=== PATIENT | female | born 1985 | race Caucasian/White ===

== ENCOUNTER 2020-01-21 10:55 | Day surgery (SDC) | payer OTHER ==
[2020-01-12 15:28] VITALS: BMI 20.9
[2020-01-21] MEDS ORDERED: PROPOFOL 20 ML ONE ×2 (11:19)
[2020-01-21 12:30] VITALS: TEMP 97.9
[2020-01-21 13:03] VITALS: BP 105/68; PULSE 84
--- NOTE | 2020-01-23 16:38 | PATH ---
Surgical Pathology Report Patient Name: FRANKLIN WRIGHT [facility]. Rec. #: [id number] /Age/Gender: 1985 (Age: 34) / F Account: [id number] Location: [facility] Taken: 01/21/2020 Received: 01/21/2020 Reported: 01/23/2020 Physicians: Faith Ren M.D. Specimen(s) Received A: SECOND PORTION DUODENUM B: ANTRUM C: GE JUNCTION Clinical History Bloating, epigastric discomfort Final Diagnosis A. SECOND PORTION OF DUODENUM, BIOPSY: DUODENAL MUCOSA WITH NO PATHOLOGIC FINDINGS. B. GASTRIC ANTRUM, BIOPSY: MILD CHRONIC GASTRITIS WITH FEATURES OF REACTIVE GASTROPATHY. IMMUNOSTAIN IS NEGATIVE FOR H. PYLORI ORGANISMS. C. GE JUNCTION, BIOPSY: COLUMNAR (GASTRIC CARDIA-TYPE) MUCOSA SHOWING MILD CHRONIC INFLAMMATION. NEGATIVE FOR INTESTINAL METAPLASIA. Electronically Signed Sendy Vázquez M.D. Gross Description A. Received in formalin, labeled "biopsy second portion of duodenum" is a salas, irregular portion of soft tissue measuring 0.3 cm. in greatest dimension. The specimen is submitted in toto in one cassette. B. Received in formalin, labeled "biopsy gastric antrum" is a salas, irregular portion of soft tissue measuring 0.2 cm. in greatest dimension. The specimen is submitted in toto in one cassette. C. Received in formalin, labeled "biopsy GE junction" is a salas, irregular portion of soft tissue measuring 0.3 cm. in greatest dimension. The specimen is submitted in toto in one cassette. /01/22/2020 saudi/01/22/2020
== END 2020-01-21 13:00 | disposition home or self-care (01) ==
LOC: FASU-ENDO 10:55
PROVIDERS: ATTEND Internal Medicine Gastroenterology
PROC: 0DB68ZX Excision of Stomach, Via Natural or Artificial Opening Endoscopic, Diagnostic (ICD-10-PCS; 2020-01-21)
PROC: 0DB48ZX Excision of Esophagogastric Junction, Via Natural or Artificial Opening Endoscopic, Diagnostic (ICD-10-PCS; 2020-01-21)
PROC: 0DB98ZX Excision of Duodenum, Via Natural or Artificial Opening Endoscopic, Diagnostic (ICD-10-PCS; principal; 2020-01-21 12:11)
DX: K29.50 Unspecified chronic gastritis without bleeding (principal); K31.9 Disease of stomach and duodenum, unspecified; K20.9 Esophagitis, unspecified; R10.13 Epigastric pain
CPT/HCPCS: 84703; 88305-TC; 88342-TC